=== PATIENT | male | born 1935 | race Asian ===

== ENCOUNTER 2016-08-16 09:30 | Emergency (ER) | payer OTHER ==
[~2016-08-16] VITALS: Ht 172.7 cm; Wt 70.3 kg
[2016-08-16 09:36] VITALS: BP 157/98; PULSE 74; RESP 18; TEMP 97.1; O2SAT 97
[2016-08-16] MEDS ORDERED: ACETAMINOPHEN 500 MG TABLET PO ONE (09:45)
[2016-08-16] MEDS ORDERED: BACITRACIN 1 GM OINT TP ONE (14:15)
[2016-08-16 16:42] VITALS: BP 133/79; PULSE 71; RESP 16; O2SAT 96
== END 2016-08-16 16:42 | disposition home or self-care (01) ==
LOC: SED 09:30
DX: S00.81XA Abrasion of other part of head, initial encounter (principal); M54.2 Cervicalgia; M54.9 Dorsalgia, unspecified; W01.0XXA Fall on same level from slipping, tripping and stumbling without subsequent striking against object, initial encounter; Y93.01 Activity, walking, marching and hiking; Y99.8 Other external cause status; Y92.89 Other specified places as the place of occurrence of the external cause
CPT/HCPCS: 70450-TC; 70486-TC; 72125-TC; 99284